=== PATIENT | female | born 1945 ===

== ENCOUNTER 2017-02-20 13:31 | Inpatient (IN) | payer MEDICARE ==
--- NOTE | 2017-02-20 13:44 | CT ---
PROCEDURE: CT HEAD WITHOUT CONTRAST. HISTORY: left sided weakness r/o cva COMPARISON: None available. TECHNIQUE: Axial computed tomography images were obtained through the head/brain without intravenous contrast. Radiation dose: Total exam DLP = 926 mGy-cm. This CT exam was performed using one or more of the following dose reduction techniques: Automated exposure control, adjustment of the mA and/or kV according to patient size, and/or use of iterative reconstruction technique. FINDINGS: HEMORRHAGE: No intracranial hemorrhage. BRAIN: No mass effect or edema. No atrophy or chronic microvascular ischemic changes. VENTRICLES: Unremarkable. No hydrocephalus. CALVARIUM: Unremarkable. PARANASAL SINUSES: Unremarkable as visualized. No significant inflammatory changes. MASTOID AIR CELLS: Unremarkable as visualized. No inflammatory changes. OTHER FINDINGS: None. IMPRESSION: No acute findings
--- NOTE | 2017-02-20 14:05 | ED PDOC ---
Arrival/HPI - General Time Seen by Provider: 02/20/17 13:31 Historian: EMS - Critical Care Critical Care Minutes: 30 minutes - History of Present Illness Narrative History of Present Illness (Text): 02/20/17 14:01 A 71 year old female, whose past medical history includes hyperlipidemia, hypertension, parkinsons (?), ESRD, gout, and diabetes, is brought in by ambulance for left sided weakness that started about 20 minutes prior to arrival as per EMS as per HD center. The patient was seen immediately upon arrival. As per EMS, the patient was in the dialysis center when she began experiencing left sided weakness. As per EMS the blood pressure on the scene was 188/70. ROS/HPI limited due to patient's acuity of condition. PMD: Dr. De Jesus GI: Dr. Farmer Time/Duration: Prior to Arrival Symptom Onset: Sudden Symptom Course: Unchanged Activities at Onset: Rest, Light Context: Other (Dialysis Center) Family/Social History - Physician Review Nursing Documentation Reviewed: Yes Family/Social History: No Known Family HX Allergies/Home Meds Allergies/Adverse Reactions: Allergies No Known Allergies Allergy (Unverified 02/20/17 13:32) Home Medications: Home Meds Medication Instructions Recorded Confirmed Unobtainable 02/20/17 02/20/17 Review of Systems - Physician Review All systems were reviewed & negative as marked: Yes - Review of Systems Systems not reviewed;Unavailable: Acuity of Condition Physical Exam Vital Signs Reviewed: Yes Vital Signs Temp Pulse Resp BP Pulse Ox 02/20/17 17:06 99.6 F 77 19 180/60 H 98 02/20/17 16:58 78 19 175/61 H 97 02/20/17 16:46 77 16 190/73 H 97 02/20/17 16:16 84 18 200/71 H 02/20/17 14:02 99.7 F H 87 23 158/121 H 93 L Temperature: Febrile Blood Pressure: Hypertensive Pulse: Regular Respiratory Rate: Normal Mental Status: Positive for: Confused. No: Alert and Oriented X 3 (Awake) - Systems Exam Head: Present: Atraumatic, Normocephalic Pupils: Present: PERRL Extroacular Muscles: Present: EOMI Conjunctiva: Present: Normal Mouth: Present: Moist Mucous Membranes Pharnyx: Present: Normal. No: ERYTHEMA Nose (Internal): Present: Normal Inspection Neck: Present: Normal Range of Motion. No: MIDLINE TENDERNESS, Paraspinal Tenderness Respiratory/Chest: Present: Clear to Auscultation, Good Air Exchange. No: Respiratory Distress, Accessory Muscle Use Cardiovascular: Present: Regular Rate and Rhythm Abdomen: Present: Normal Bowel Sounds. No: Tenderness, Distention Back: Present: Normal Inspection Upper Extremity: Present: Normal Inspection, NORMAL PULSES, Neurovascularly Intact Lower Extremity: Present: Normal Inspection, NORMAL PULSES, Neurovascularly Intact Neurological: Present: GCS=15, CN II-XII Intact, Motor Func Grossly Intact, Normal Sensory Function, Other (Patient answers limited to questions. Says only name and then asked again and doesn't say name anymore. +shivering. No convulsions) Skin: Present: Warm Psychiatric: Present: Alert, Other (Awake). No: Oriented x 3, Normal Insight, Normal Concentration Medical Decision Making ED Course and Treatment: 02/20/17 14:08 Impression: A 71 year old female presents to the emergency department after experiencing left sided weakness while in dialysis. On arrival was moving all extremities but did have shivers and altered mental status. Differential Diagnosis included but are not limited to: Altered Mental Status r /o Sepsis r/o CVA r/o Seizures Plan: -- EKG -- Chest X-ray -- Blood Culture -- Labs -- Urinalysis -- Reassess and disposition Progress Notes: 02/20/17 13:28: Code stroke was called. 02/20/17 14:31: Discussed case with nurse from dialysis center, [facility], who states that the patient was finishing dialysis when she appeared to be shaking, having chills. The nurse states that she checked her temperature an blood pressure which was 99.4 and 175/80 at the time. As per the nurse, the patient has had a similar episode before and was admitted to [facility] for Parkinson's. The nurse states that today, the patient was not following commands with her left side. Tried to contact through cell phone and home phone, but have not received an answer. A voicemail was left. 02/20/17 14:51: Case was discussed in detail with Dr. Matthew Marshall who states that the patient is not a tPA candidates secondary to infectious etiology and rapid improvement of symptoms. CHEST X-RAY Dictator : Johnny Reyna MD Report Date : 02/20/2017 14:42:59 IMPRESSION: Bilateral perihilar infiltrates right greater than left CT HEAD WITHOUT CONTRAST. Dictator : Johnny Reyna MD Report Date : 02/20/2017 13:42:39 IMPRESSION: No acute findings 02/20/17 15:19: Spoke with patients at bedside, who confirms history provided by nurse from the renal center. He believes patient was not responding to questions and did not have weakness in just her left side. He reports patient has been shivering for 2 days but is unsure if she had a fever. Patient is currently not answering husbands questions, he states this is not her baseline. Case discussed with Dr. Pruitt, who states he will evaluate patient at bedside. 02/20/17 16:52 Dr. Pruitt evaluated patient and on his evaluation patient was answering who her . On my reevaluation she started answering more questions as well. She said her name and where she was. She doesn't remember what happened. She is able to geophysical observer both hands and lift her legs. Sensation intact. She is still mildly confused. says she's better. Although there was no convulsions, will also consider seizures. PMD Dr. Guillory admits to Dr. Ariza. Will place on her service to Telemetry. 02/20/17 17:24 EKG: NSR at [address] elevations, nl intervals 02/20/17 17:26 Blood pressure treated with Labetolol. Case discussed with Dr. Junior Marshall after ICU consult. He agrees that no seizure medications at this time. - Critical Care Critical Care Minutes: 60 minutes - Lab Interpretations Lab Results: 02/20/17 13:55 02/20/17 13:55 Lab Results 02/20/17 13:55: pO2 30, VBG pH 7.44 H, VBG pCO2 57.0, VBG HCO3 38.7 H, VBG Total CO2 40.4 H, VBG O2 Sat (Calc) 56.5, VBG Base Excess 12.1 H, VBG Potassium 3.5 L, Sodium 136.0, Chloride 94.0 L, Glucose 93, Lactate 2.0, FiO2 21.0, Venous Blood Potassium 3.5 L 02/20/17 13:55: Sodium 137, Chloride 89 L, Potassium 3.5 L, Carbon Dioxide 30, Anion Gap 21 H, BUN 40 H, Creatinine 6.6 H, Est GFR ( Amer) 8, Est GFR ( Non-Af Amer) 6, Random Glucose 95, Calcium 10.3, Total Bilirubin 1.0, AST 40 H, ALT 40, Alkaline Phosphatase 136 H, Troponin I 0.05, Total Protein 9.1 H, Albumin 4.9 H, Globulin 4.2, Albumin/Globulin Ratio 1.2, Triglycerides 102, Cholesterol 155, LDL Cholesterol Direct 42, HDL Cholesterol 78 H 02/20/17 13:55: PT 11.2, INR 1.02, APTT 34.0 02/20/17 13:55: WBC 17.3 H, RBC 3.86, Hgb 12.1, Hct 36.9, MCV 95.6, MCH 31.3, MCHC 32.8, RDW 14.4, Plt Count 201, MPV 9.6, Gran % 85.9 H, Lymph % (Auto) 7.2 L , [place] % (Auto) 6.2 H, Eos % (Auto) 0.6 L, Baso % (Auto) 0.1, Gran # 14.86 H, Lymph # 1.3, [place] # 1.1 H, Eos # 0.1, Baso # 0.01 I have reviewed the lab results: Yes - RAD Interpretation Radiology Orders: 02/20/17 13:32 HEAD W/O (CODE STROKE) [CT] Stat 02/20/17 13:33 CHEST PORTABLE [RAD] Stat - EKG Interpretation Interpreted by ED Physician: Yes Type: 12 lead EKG - Medication Orders Current Medication Orders: Discontinued Medications Aspirin (Aspirin Supp) 300 mg RC STAT STA Stop: 02/20/17 15:08 Last Admin: 02/20/17 15:20 Dose: 300 mg Cefepime HCl (Maxipime 2gm) 2 gm in 100 mls @ 100 mls/hr IVPB STAT STA PRN Reason: Protocol Stop: 02/20/17 16:01 Last Admin: 02/20/17 15:56 Dose: 100 mls/hr eMAR Start Stop Document 02/20/17 15:56 RG (Rec: 02/20/17 15:57 RG [id number]) Intravenous Solution Start Date 02/20/17 Start Time 15:57 End Date 02/20/17 Vancomycin HCl (Vancomycin 1gm) 1 gm in 250 mls @ 167 mls/hr IVPB STAT STA PRN Reason: Protocol Stop: 02/20/17 16:31 Last Admin: 02/20/17 16:24 Dose: 167 mls/hr eMAR Start Stop Document 02/20/17 16:24 TANVI (Rec: 02/20/17 16:24 TANVI [id number]) Intravenous Solution Start Date 02/20/17 Start Time 16:24 NIHSS Scale (Brilliant) Time Performed: 13:31 - How Severe is the Stoke Baseline Level of Consciousness: 0=Alert LOC to Questions: 2=Neither correct LOC to commands: 0=Obeys both correctly Best Gaze: 0=Normal Visual: 3=Bilateral Facial: 0=Normal Motor Arm - Left: 2=Falls before 10 sec Motor Arm - Right: 2=Falls before 10 sec Motor Leg - Left: 2=Falls before 5 sec Motor Leg - Right: 2=Falls before 5 sec Limb Ataxia: 2=Present both Sensory: 0=Normal Best Language: 2=Severe aphasia Dysarthia: 2=Severe, near unintelligible or worse Extinction & Inattention (Neglect): 2=Profound neglect(does not recognize own hand or orients to one side) Score: 21 Risk Level: Severe Stroke Risk NIHSS Scale(Brilliant) 2 Time Performed: 17:27 - How Severe is the Stoke Baseline Level of Consciousness: 0=Alert LOC to Questions: 0=Both comments correct LOC to commands: 0=Obeys both correctly Best Gaze: 0=Normal Visual: 0=No visual loss Facial: 0=Normal Motor Arm - Left: 2=Falls before 10 sec Motor Arm - Right: 2=Falls before 10 sec Motor Leg - Left: 2=Falls before 5 sec Motor Leg - Right: 2=Falls before 5 sec Limb Ataxia: 2=Present both Sensory: 0=Normal Best Language: 0=No aphasia Dysarthia: 0=Normal articulation Extinction & Inattention (Neglect): 0=Normal, no object Score: 10 Risk Level: Mod Stroke Risk rTPA Inclusion/Exclusion - Refusal of Treatment Patient Refused Treatment: No - Inclusion Criteria for Altepase Patient is 18 years or Older: Yes The Clinical Diagnosis of Ischemic Stroke That is Causing a Potentially Disabling Neurological Deficit: No Time of Onset is Well Established to be Less Than 270 Minute Before Treatment Would Begin: Yes Risk/Benefit Discussed With Patient/Family Member Present: No - Scribe Statement The provider has reviewed the documentation as recorded by the Scribe Jannette Swan Provider Priyaibe Attestation: All medical record entries made by the Scribe were at my direction and personally dictated by me. I have reviewed the chart and agree that the record accurately reflects my personal performance of the history, physical exam, medical decision making, and the department course for this patient. I have also personally directed, reviewed, and agree with the discharge instructions and disposition. Disposition/Present on Arrival - Present on Arrival Any Indicators Present on Arrival: No - Disposition Have Diagnosis and Disposition been Completed?: Yes Diagnosis: Seizure, Altered mental status, Sepsis Disposition: HOSPITALIZED Disposition Time: 16:31 Patient Plan: Admission Patient Problems: Current Active Problems Problem Status Onset Altered mental status Acute Seizure Acute Sepsis Acute Condition: GUARDED
[2017-02-20 14:09] LABS: BASO # 0.01 K/mm3 (0.0-2.0); BASO % 0.1 % (0.0-3.0); EOS # 0.1 (0.0-0.7); EOS % 0.6 % (1.5-5.0); GRAN # 14.86 (1.4-6.5); GRAN % 85.9 % (50.0-68.0); HEMOGLOBIN 12.1 g/dL (12.0-16.0); LYMPH # 1.3 (1.2-3.4); LYMPH % 7.2 % (22.0-35.0); MEAN CELL VOLUME 95.6 fl (80.0-105.0); MEAN CORPUSCULAR HEMOGLOBIN 31.3 pg (25.0-35.0); MEAN CORPUSCULAR HGB CONC 32.8 g/dl (31.0-37.0); MEAN PLATELET VOLUME 9.6 fl (7.0-11.0); MONO # 1.1 (0.1-0.6); MONO % 6.2 % (1.0-6.0); RBC 3.86 10^6/uL (3.5-6.1); RED CELL DISTRIBUTION WIDTH 14.4 % (11.5-14.5); WHITE BLOOD COUNT 17.3 10^3/ul (4.5-11.0)
[2017-02-20 14:15] LABS: VENOUS BLOOD GAS BASE EXCESS 12.1 mmol/L (0.0-2.0); VENOUS BLOOD GAS PO2 30 mm/Hg (30-55); VENOUS BLOOD PH 7.44 (7.32-7.43)
[2017-02-20 14:19] LABS: ALBUMIN 4.9 g/dL (3.0-4.8); CALCIUM 10.3 mg/dL (8.4-10.5)
[2017-02-20 14:23] LABS: ALB/GLOB RATIO 1.2 (1.1-1.8); INR 1.02 (0.93-1.08); PROTHROMBIN TIME 11.2 SECONDS (9.4-12.5)
[2017-02-20 14:32] LABS: TROPONIN I 0.05 ng/mL
--- NOTE | 2017-02-20 14:44 | RAD ---
HISTORY: r/o cva COMPARISON: No prior. FINDINGS: LUNGS: Bilateral perihilar infiltrates right greater than left PLEURA: No significant pleural effusion identified, no pneumothorax apparent. CARDIOVASCULAR: Normal. OSSEOUS STRUCTURES: No significant abnormalities. VISUALIZED UPPER ABDOMEN: Normal. OTHER FINDINGS: None. IMPRESSION: Bilateral perihilar infiltrates right greater than left
[2017-02-20] MEDS ORDERED: Vancomycin 1gm in NS 250ml 1 GM/250 ML BAG IVPB STA (15:02)
[2017-02-20] MEDS ORDERED: Cefepime IV 2 gm in NS 2 GM/100 ML BAG IVPB STA (15:02)
--- NOTE | 2017-02-20 15:50 | CP.PCM.CON ---
<Elan Hernnadez - Last Filed: 02/20/17 16:17> History of Present Illness - History of Present Illness History of Present Illness: Critical Care Consult Note for Dr. Pruitt Reason for Consult: AMS 71 F with a past medical history that includes HTN, HLD, Parkinson's disease, ESRD on HD, and DM was brought in by EMS for AMS and weakness. was at bedside and supplemented history. As per , the patient was receiving dialysis earlier when she began to shake and become lethargic. She was also experiencing left sided weakness. As per EMS record, blood pressure was elevated at the dialysis center (188/70). states that patient was at normal baseline before dialysis. PMD: Dr. De Jesus PMH: HTN, HLD, Parkinson's disease, ESRD on HD (MWF), gout, DM Meds: As per EMR Allergy: NKDA PSH: PRABHU AVF FH: unknown Social: denied tobacco/EtOH/illicit drug use Review of Systems - Review of Systems All systems: reviewed and no additional remarkable complaints except (as per HPI ) Past Patient History - Past Social History Smoking Status: Unknown If Ever Smoked - CARDIAC Hx Hypertension: Yes - RENAL Hx Chronic Kidney Disease: Yes Hx Dialysis: Yes Type of Dialysis Access: Left arm - PSYCHIATRIC Hx Substance Use: No Meds Allergies/Adverse Reactions: Allergies Allergy/AdvReac Type Severity Reaction Status Date / Time No Known Allergies Allergy Unverified 02/20/17 13:32 - Medications Medications: Current Medications Cefepime HCl (Maxipime 2gm) 2 gm in 100 mls @ 100 mls/hr IVPB STAT STA PRN Reason: Protocol Stop: 02/20/17 16:01 Vancomycin HCl (Vancomycin 1gm) 1 gm in 250 mls @ 167 mls/hr IVPB STAT STA PRN Reason: Protocol Stop: 02/20/17 16:31 Physical Exam - Constitutional Appears: Confused - Head Exam Head Exam: ATRAUMATIC, NORMOCEPHALIC - Eye Exam Eye Exam: Normal appearance - ENT Exam ENT Exam: Mucous Membranes Moist - Respiratory Exam Respiratory Exam: Clear to Auscultation Bilateral, NORMAL BREATHING PATTERN. absent: Accessory Muscle Use, Respiratory Distress - Cardiovascular Exam Cardiovascular Exam: REGULAR RHYTHM, +S1, +S2 - GI/Abdominal Exam GI & Abdominal Exam: Normal Bowel Sounds, Soft. absent: Distended, Firm, Guarding, Hernia, Rebound, Rigid, Tenderness - Extremities Exam Extremities exam: Negative for: calf tenderness Additional comments: LUE AVF palpable thrill and audible bruit - Neurological Exam Neurological exam: Alert - Psychiatric Exam Psychiatric exam: Flat Affect - Skin Skin Exam: Dry, Intact, Normal Color, Warm Results - Vital Signs Recent Vital Signs: Last Vital Signs Temp 99.7 F H 02/20/17 14:02 Pulse 87 02/20/17 14:02 Resp 23 02/20/17 14:02 BP 158/121 H 02/20/17 14:02 Pulse Ox 93 L 02/20/17 14:02 - Labs Result Diagrams: 02/20/17 13:55 02/20/17 13:55 Labs: Laboratory Results - last 24 hr 02/20/17 02/20/17 02/20/17 13:55 13:55 13:55 WBC 17.3 H RBC 3.86 Hgb 12.1 Hct 36.9 MCV 95.6 MCH 31.3 MCHC 32.8 RDW 14.4 Plt Count 201 MPV 9.6 Gran % 85.9 H Lymph % (Auto) 7.2 L [place] % (Auto) 6.2 H Eos % (Auto) 0.6 L Baso % (Auto) 0.1 Gran # 14.86 H Lymph # 1.3 [place] # 1.1 H Eos # 0.1 Baso # 0.01 PT 11.2 INR 1.02 APTT 34.0 pO2 VBG pH VBG pCO2 VBG HCO3 VBG Total CO2 VBG O2 Sat (Calc) VBG Base Excess VBG Potassium Sodium 137 Chloride 89 L Glucose Lactate FiO2 Potassium 3.5 L Carbon Dioxide 30 Anion Gap 21 H BUN 40 H Creatinine 6.6 H Est GFR ( Amer) 8 Est GFR (Non-Af Amer) 6 Random Glucose 95 Calcium 10.3 Total Bilirubin 1.0 AST 40 H ALT 40 Alkaline Phosphatase 136 H Troponin I 0.05 Total Protein 9.1 H Albumin 4.9 H Globulin 4.2 Albumin/Globulin Ratio 1.2 Triglycerides 102 Cholesterol 155 LDL Cholesterol Direct 42 HDL Cholesterol 78 H Venous Blood Potassium 02/20/17 13:55 WBC RBC Hgb Hct MCV MCH MCHC RDW Plt Count MPV Gran % Lymph % (Auto) [place] % (Auto) Eos % (Auto) Baso % (Auto) Gran # Lymph # [place] # Eos # Baso # PT INR APTT pO2 30 VBG pH 7.44 H VBG pCO2 57.0 VBG HCO3 38.7 H VBG Total CO2 40.4 H VBG O2 Sat (Calc) 56.5 VBG Base Excess 12.1 H VBG Potassium 3.5 L Sodium 136.0 Chloride 94.0 L Glucose 93 Lactate 2.0 FiO2 21.0 Potassium Carbon Dioxide Anion Gap BUN Creatinine Est GFR ( Amer) Est GFR (Non-Af Amer) Random Glucose Calcium Total Bilirubin AST ALT Alkaline Phosphatase Troponin I Total Protein Albumin Globulin Albumin/Globulin Ratio Triglycerides Cholesterol LDL Cholesterol Direct HDL Cholesterol Venous Blood Potassium 3.5 L Assessment & Plan - Assessment and Plan (Free Text) Assessment: 71 F with a past medical history that includes HTN, HLD, Parkinson's disease, ESRD on HD, and DM was brought in by EMS for AMS and weakness -WBC elevated -Patient awake, alert, and answering questions appropriately -ABG -Neuro consult -EEG -Broad spectrum Antibiotics -CT head is negative -Discussed with Dr. Sonal Hernandez PGY1 <Glynn Pruitt - Last Filed: 02/20/17 16:26> Meds - Medications Medications: Current Medications Vancomycin HCl (Vancomycin 1gm) 1 gm in 250 mls @ 167 mls/hr IVPB STAT STA PRN Reason: Protocol Stop: 02/20/17 16:31 Results - Vital Signs Recent Vital Signs: Last Vital Signs Temp 99.7 F H 02/20/17 14:02 Pulse 87 02/20/17 14:02 Resp 23 02/20/17 14:02 BP 158/121 H 02/20/17 14:02 Pulse Ox 93 L 02/20/17 14:02 - Labs Result Diagrams: 02/20/17 13:55 02/20/17 13:55 Labs: Laboratory Results - last 24 hr 02/20/17 02/20/17 02/20/17 13:55 13:55 13:55 WBC 17.3 H RBC 3.86 Hgb 12.1 Hct 36.9 MCV 95.6 MCH 31.3 MCHC 32.8 RDW 14.4 Plt Count 201 MPV 9.6 Gran % 85.9 H Lymph % (Auto) 7.2 L [place] % (Auto) 6.2 H Eos % (Auto) 0.6 L Baso % (Auto) 0.1 Gran # 14.86 H Lymph # 1.3 [place] # 1.1 H Eos # 0.1 Baso # 0.01 PT 11.2 INR 1.02 APTT 34.0 pO2 VBG pH VBG pCO2 VBG HCO3 VBG Total CO2 VBG O2 Sat (Calc) VBG Base Excess VBG Potassium Sodium 137 Chloride 89 L Glucose Lactate FiO2 Potassium 3.5 L Carbon Dioxide 30 Anion Gap 21 H BUN 40 H Creatinine 6.6 H Est GFR ( Amer) 8 Est GFR (Non-Af Amer) 6 Random Glucose 95 Calcium 10.3 Total Bilirubin 1.0 AST 40 H ALT 40 Alkaline Phosphatase 136 H Troponin I 0.05 Total Protein 9.1 H Albumin 4.9 H Globulin 4.2 Albumin/Globulin Ratio 1.2 Triglycerides 102 Cholesterol 155 LDL Cholesterol Direct 42 HDL Cholesterol 78 H Venous Blood Potassium 02/20/17 13:55 WBC RBC Hgb Hct MCV MCH MCHC RDW Plt Count MPV Gran % Lymph % (Auto) [place] % (Auto) Eos % (Auto) Baso % (Auto) Gran # Lymph # [place] # Eos # Baso # PT INR APTT pO2 30 VBG pH 7.44 H VBG pCO2 57.0 VBG HCO3 38.7 H VBG Total CO2 40.4 H VBG O2 Sat (Calc) 56.5 VBG Base Excess 12.1 H VBG Potassium 3.5 L Sodium 136.0 Chloride 94.0 L Glucose 93 Lactate 2.0 FiO2 21.0 Potassium Carbon Dioxide Anion Gap BUN Creatinine Est GFR ( Amer) Est GFR (Non-Af Amer) Random Glucose Calcium Total Bilirubin AST ALT Alkaline Phosphatase Troponin I Total Protein Albumin Globulin Albumin/Globulin Ratio Triglycerides Cholesterol LDL Cholesterol Direct HDL Cholesterol Venous Blood Potassium 3.5 L Assessment & Plan - Assessment and Plan (Free Text) Assessment: Patient seen and examined with resident, agree with note with following additions/exceptions: Patient is 71yo female with PMHx of HTN, HLD, ESRD on HD presents with low grade temp and AMS. Pt is currnetly awake, alert, answers questions appropriately, oriented to person. CT head negative, moving all 4 extremities. On labs has leukocytosis Recommend: - supp o2 as needed - obtain an ABG - EEG - MRI brain - neurology consult - broad spectrum antibiotics - monitor on telemetry
[2017-02-20] MEDS ORDERED: Labetalol 5 mg/ml Inj 20ML IV STA (17:25)
[2017-02-20 17:41] LABS: VENOUS BLOOD GAS BASE EXCESS 8.5 mmol/L (0.0-2.0); VENOUS BLOOD GAS PO2 174 mm/Hg (30-55); VENOUS BLOOD PH 7.49 (7.32-7.43)
--- NOTE | 2017-02-20 19:11 | CON ---
DATE: 02/20/2017 NEUROLOGY CONSULTATION CHIEF COMPLAINT: Altered mental status and lethargy. HISTORY OF PRESENT ILLNESS: This is a 71-year-old woman with past medical history of hypertension, hyperlipidemia, questionable Parkinson's disease, end-stage renal disease on hemodialysis, type 2 diabetes mellitus, came in for altered mental status and generalized weakness. As per , the patient was receiving dialysis earlier, which shiver become generally lethargic. She has a questionable left side weakness. Her blood pressure was elevated and dialysis at 180/70. Currently, during her ER visit she was found to have an elevated systolic and diastolic blood pressure of 158/121 and low-grade temperature of 99.7 with elevated white count of 17.3 and electrolyte derangement in terms of low potassium, low chloride, and elevated BUN. Currently, she is more awake, following simple commands. CAT scan of the head showed no acute cranial abnormalities. They should reevaluate by the ER physician Dr. Chaney, who mentioned that she is more awake. Currently, she follow simple commands, moving all extremities. PAST MEDICAL HISTORY: History of hypertension, hyperlipidemia, end-stage renal disease on hemodialysis, questionable Parkinson's disease, and history of gout. ALLERGIES: NO KNOWN DRUG ALLERGIES. PAST SURGICAL HISTORY: Left upper extremity AV shunt. FAMILY HISTORY: Noncontributory. SOCIAL HISTORY: No illicit drug use or EtOH abuse. REVIEW OF SYSTEMS: A 14-point review of systems is negative except as in the HPI. PHYSICAL EXAMINATION: VITAL SIGNS: Temperature 99.6, pulse rate 77, blood pressure of 180/60, respiratory rate 16, oxygen saturation is 98% in room air. GENERAL: The patient is sitting up in bed, lethargic. HEENT: Head is atraumatic and normocephalic. PERRLA. Extraocular muscles are intact. NECK: Supple. No JVD. No adenopathy noted. LUNGS: Clear to auscultation. No adventitious sounds. HEART: S1 and S2. Normal rate and rhythm. No murmurs, rubs or gallops. ABDOMEN: Soft, nontender and nondistended. Bowel sounds are present. EXTREMITIES: No clubbing. No cyanosis. Peripheral pulses are 2+ felt bilaterally. NEUROLOGIC: The patient is drowsy, in no acute distress. Moves all extremities equally, no apparent distress. Sensory exam: Decreased light touch, pinprick, proprioception up to the calves bilaterally, decreased vibration of the toes. DTRs are 1+ throughout as both knees and ankles. Coordination and gait deferred for now. LABORATORY DATA: Sodium is 137, potassium of 3.5, chloride of 89, carbon dioxide of 30, BUN of 45, creatinine 6.6, random glucose of 95. ASSESSMENT AND PLAN: This is a 71-year-old woman with past medical history of hypertension, hyperlipidemia, end-stage renal disease on hemodialysis, came in low-grade temperature and altered mental status at the dialysis. Found to have elevated systolic and diastolic blood pressures for her baseline with metabolic derangement and is currently awake, alert, and answer appropriate questions. CAT scan of the head show no acute cranial abnormality. Moving all extremities. Likely transient hypertensive urgency versus metabolic encephalopathy versus sepsis with underlying possible infarct. At this time recommend: 1. Supplement oxygen as necessary. 2. An arterial blood gas. 3. MRI of the brain assess any focal neurological abnormality causing her symptoms. 4. Monitor electrolytes and correct accordingly. 5. Delirium precautions. 6. Broad spectrum antibiotics given the elevated white count, need blood cultures, and a chest x-ray. Monitor on Holter monitor. At this time, continue current present medical management. PT and OT evaluation. Thank you for this consult. Junior Marshall MD
--- NOTE | 2017-02-20 19:32 | CARD ---
APPROVED REPORT EKG Measurement Heart [id number] <Conclusion> Sinus rhythm with significant artifacs , no further interpretation can be made Repeat EKG Abnormal ECG
[2017-02-20] MEDS ORDERED: Cefepime 1gm in NS 100ml 1 GM/100 ML BAG IVPB SCH (22:00)
[2017-02-20] MEDS: Insulin Lispro (HUMAlog) HIGH Coverage SC SCH (22:10)
[2017-02-20 22:20] VITALS: BMI 26.6
[2017-02-20] MEDS ORDERED: Pneumococcal 23-Valent Vaccine IM ONE (22:20)
[2017-02-20] MEDS ORDERED: Influenza Vaccine 60 mcg/0.5 mL SYR (4YR UP) IM ONE (22:20)
--- NOTE | 2017-02-21 00:55 | HP ---
HISTORY OF PRESENT ILLNESS: The patient is a 71-year-old dialysis patient. She had dialysis done earlier this morning. By the end of dialysis, she started to have shaking chills and she became lethargic and increasingly weak. She was confused and disoriented as per who was by the bedside that she was shivering prior to the episode and she developed left-sided weakness. Also it was noted that her blood pressure went up to 180/70. There is no history of nausea or vomiting prior to dialysis. PAST MEDICAL HISTORY: Significant for: 1. Hypertension. 2. Hyperlipidemia. 3. End-stage renal disease, on hemodialysis. 4. History of Parkinson's disease. 5. History of gout. PAST SURGICAL HISTORY: Significant for left upper extremity AV shunt. ALLERGIES: SHE IS NOT ALLERGIC TO ANY MEDICATIONS. MEDICATIONS AT HOME: She is on Lantus 100 units subcutaneously daily, Humalog 100 units daily, hydralazine 50 mg daily, gabapentin 100 daily, Lasix 80 mg daily, Fosrenol 500 daily, aspirin 81 daily, amlodipine 10 mg daily, and allopurinol 100 mg daily. SOCIAL HISTORY: She is and lives with her . She never smoked. No drinking. PHYSICAL EXAMINATION: GENERAL: She is much more awake and alert. VITAL SIGNS: She is afebrile, pulse 73, respirations 18, and blood pressure 169/56. LUNGS: Bilateral fair airflow. No rhonchi or crackle. HEART: S1 and S2 audible. ABDOMEN: Soft and nontender. No rebound. No guarding. NEUROLOGIC: The patient is awake and alert. Moves all extremities. Able to answer simple questions. LABORATORY DATA: WBC 17.3, hemoglobin of 12.1, hematocrit 36.9, and platelets of 201. PT 11.2 and INR 1.02. ABG; pH of 7.49, pO2 of 174, pCO2 of 43, and pulse ox of 97%. Chemistry; sodium 137, potassium 3.5, chloride 89, CO2 of 30, BUN 40, creatinine 6.6, and blood sugar of 95. LFTs are within normal limits. HDL is 78. ASSESSMENT: 1. Probably sepsis. 2. Altered mental status. 3. End-stage renal disease, on hemodialysis. 4. Hypertension. 5. Hyperlipidemia. 6. Uncontrolled hypertension. 7. Leukocytosis. 8. Hypokalemia. PLAN: The patient is being admitted on telemetry. We will resume her usual medications. She was given aspirin 300 in the ER, cefepime was given 2 g. We will continue her on cefepime 0.5 g q.12 hours renally adjusted. We will continue her on amlodipine. I will order for carotid Doppler and MRI of the brain has been requested by neurologist and Neuro consult by Dr. Marshall and ID consult by Dr. Mccormack has been requested. I will request for physical therapy evaluation and follow up CBC in a.m. Jagjit Ariza MD
[2017-02-21] MEDS: Cefepime 0.5 GM in Sodium Chloride 0.9% 100 ML IVPB SCH ×2 (05:11→17:42)
[2017-02-21 07:24] LABS: BASO # 0.01 K/mm3 (0.0-2.0); BASO % 0.1 % (0.0-3.0); EOS # 0.2 (0.0-0.7); EOS % 2.3 % (1.5-5.0); GRAN # 5.47 (1.4-6.5); GRAN % 73.1 % (50.0-68.0); LYMPH # 1.2 (1.2-3.4); LYMPH % 15.6 % (22.0-35.0); MEAN CELL VOLUME 95.7 fl (80.0-105.0); MEAN CORPUSCULAR HEMOGLOBIN 30.7 pg (25.0-35.0); MEAN CORPUSCULAR HGB CONC 32.1 g/dl (31.0-37.0); MEAN PLATELET VOLUME 9.8 fl (7.0-11.0); MONO # 0.7 (0.1-0.6); MONO % 8.9 % (1.0-6.0); RBC 3.22 10^6/uL (3.5-6.1); RED CELL DISTRIBUTION WIDTH 14.2 % (11.5-14.5); WHITE BLOOD COUNT 7.5 10^3/ul (4.5-11.0)
[2017-02-21 07:25] LABS: HEMOGLOBIN 9.9 g/dL (12.0-16.0)
[2017-02-21] MEDS: Insulin Lispro (HUMAlog) HIGH Coverage SC SCH ×4 (08:06→21:46)
--- NOTE | 2017-02-21 11:42 | CON ---
DATE: 02/21/2017 The patient is admitted for Dr. Ariza. Her family physician is Dr. Guillory. Referring MD: Dr. Ariza. REASON FOR CONSULTATION: To provide dialysis services for the patient admitted with altered mental status, elevated white blood cell count, possible pneumonia, lethargy, and elevated blood pressure readings. HISTORY OF PRESENT ILLNESS: The patient is a 71-year-old [place] female, known to us from outpatient dialysis, the patient dialyzes Saturday, Saturday, Saturday at [facility]; history of IDDM; hemoglobin A1c was excellent at 5.5%; history of hypertension; history of hyperlipidemia; history of Parkinson's disease; gout; history of secondary hyperparathyroidism; and anemia. The patient was doing well until the determination of dialysis yesterday in the outpatient unit. At that point in time, she had developed a period of confusion with altered mental status. There was some question about her having some left-sided weakness. She had chills, nut no fever spike. She did have an elevated blood pressure up to 188 systolic. The patient was sent over to the emergency room. In the emergency room, she was noted to be afebrile, but she did have an elevated white blood cell count and altered mental status. Head CT scan was probably done, which was negative. Chest x-ray was done, which showed bilateral perihilar infiltrates. The patient was felt to have a possible pneumonia as the etiology for her fever spike, lethargy, altered mental status, and chills. The patient is currently seen today, having a carotid Doppler study done. Her last dialysis was on 02/20/2017. Her next dialysis is going to be 02/22/2017. This will likely be done in the hospital as the patient will remain an inpatient. PAST MEDICAL HISTORY: Significant for end-stage renal disease, history of IDDM, hypertension, hyperlipidemia, Parkinson's disease, history of gout, secondary hyperparathyroidism, and anemia. The patient has a working left upper extremity AV fistula. MEDICATIONS AT HOME: Include that of Lasix every other day, Lantus insulin, Humalog, hydralazine, Neurontin, Fosrenol, Ecotrin, Norvasc, and allopurinol. ALLERGIES: THE PATIENT IS ALLERGIC TO IODINE AND ADHESIVE TAPE. MEDICATIONS IN HOSPITAL: Include that of hydralazine, cefepime, Ecotrin, insulin, Neurontin, Norvasc, and Zyloprim. SOCIAL HISTORY: No history of cigarette smoking. No history of alcohol use. FAMILY HISTORY: Father of complications of diabetes with heart disease. Mother is alive with diabetes. REVIEW OF SYSTEMS: GENERAL: The patient states appetite and weight have been stable. ENT: Denies any hearing or visual problems. PULMONARY: No shortness of breath. No cough. No recent pneumonias. No history of COPD, bronchitis, or asthma. CARDIAC: No history of ASHD. No chest pain. GI: No nausea, no vomiting, no diarrhea, no constipation, no abdominal pain. : History of end-stage renal disease on chronic maintenance dialysis. TIRE LAYER: Postmenopausal. ENDOCRINE: History of diabetes mellitus and secondary hyperparathyroidism. MUSCULOSKELETAL: No complaints. NEURO: No past history of CVA, TIA, seizures, or syncope. HEM/ONC: History of anemia secondary to chronic kidney disease. No history of malignancy. PAST PSYCHIATRIC HISTORY: Negative. PHYSICAL EXAMINATION: GENERAL: The patient is currently seen, lying on a stretcher, and about to have a carotid Doppler study. She appears to be in no acute distress and appears to be back to baseline. VITAL SIGNS: Blood pressure 149/57, temperature 98.2, respiratory rate of 20 with a pulse of 56. Her T-max was 99.7 in the emergency room yesterday. HEENT: Shows her be normocephalic, atraumatic. Conjunctivae are pale. Sclerae nonicteric. Pupils equal reactive to light and accommodation. Extraocular muscles are intact. Posterior pharynx is normal. NECK: Supple. No neck vein distention or thyromegaly. No lymphadenopathy. No bruits. CHEST: Clear to auscultation and percussion with no rales, no rhonchi, or wheezing. CARDIOVASCULAR: Shows a regular rate and rhythm without audible murmurs, rubs, or gallops. ABDOMEN: Soft. Bowel sounds normal. No rebound or guarding. No masses. BACK: No CVAT. No spinal tenderness. EXTREMITIES: Show a working AV fistula in left upper extremity. No redness. No warmth. No tenderness. Positive thrill. Positive bruit. No lower extremity cyanosis, clubbing, or edema. Distal lower extremity pulses are 1-2+ bilaterally NEURO: Shows her to be alert, oriented x3. No gross focal motor or sensory deficits are noted. LABORATORY DATA AND IMAGING: Admitting head CT scan was negative for any new findings. Admitting chest x-ray on 02/20/2017 in the emergency room showed bilateral perihilar infiltrates, right greater than left. Perhaps secondary to pneumonia. Labs: CBC, white blood cell count on admission 17.3, today it is down to 7.5; hemoglobin down from 12.1-9.9, platelet count 155,000. Coags are normal. Admitting blood gas: PH 7.49, pO2 174 with a pCO2 of 43. Chemistries: Sodium 137, potassium 3.5, repeated at 3.7. Chloride 89 with a CO2 of 30. BUN 40, creatinine 6.6, status post dialysis. Calcium 10.3. Hemoglobin A1c was 5.5%. Microbiology, no results available as of the time of this dictation. ASSESSMENT: 1. End-stage renal disease. The patient will continue routine dialysis Saturday, Saturday, Saturday. All likelihood, she will receive dialysis tomorrow in the hospital. The patient would like to be discharged back to the outpatient unit, but this is likely not going to occur. The patient appears to be well dialyzed. Episode of altered mental status, confusion, perhaps left-sided weakness, blood pressure spike, with chills and elevated white blood cell count. Chest x-ray is positive for bilateral perihilar infiltrates. Possibly representing pneumonia. The patient continues on empiric antibiotic therapy. Blood cultures are pending. Repeat chest x-ray should be done post dialysis tomorrow. 2. Altered mental status and weakness, perhaps secondary to metabolic factors and sepsis related to her pneumonia. It does not appear that she has any acute neurological event. Noninvasive carotid study is pending. Head CT scan was unremarkable, and the patient was seen by Neurology. 3. History of hypertension. The patient has labile blood pressure. Blood pressures occasionally high, occasionally low. Blood pressure does drop during dialysis. The patient will continue present blood pressure medication. 4. History of hyperlipidemia, controlled with diet therapy. 5. History of mild Parkinson's disease. The patient appears to be stable on this issue, appears to be stable at this time. 6. History of gout. The patient remains on low-dose allopurinol therapy. 7. History of secondary hyperparathyroidism. The patient may use a binder therapy from home. She is taking Fosrenol. We will check a phosphorus level tomorrow. 8. History of anemia. This is likely secondary to chronic kidney disease with perhaps bone marrow suppression from possible pneumonia. PLAN: 1. Discussed with the patient in detail. Explained to her that she will need to remain in the hospital for least several more days receiving antibiotic therapy. 2. We will obtain a chest x-ray post dialysis tomorrow to check for resolution, perhaps the perihilar infiltrates represent fluid and not pneumonia. 3. Continue binder therapy and renal diet. 4. Continue present blood pressure medications. 5. For her diabetes, continue insulin on sliding scale. At present, Lantus, a long-acting insulin is on hold. Thank you for letting me partake and share in the care of our mutual patient. Carlitos Chen MD
--- NOTE | 2017-02-21 11:57 | US ---
PROCEDURE: Bilateral carotid artery duplex ultrasound HISTORY: Carotid stenosis PHYSICIAN(S): William Echevarria MD. TECHNIQUE: Duplex sonography and color-flow Doppler were used to evaluate the carotid bifurcations and limited segments of the vertebral arteries bilaterally. FINDINGS: There is mild focal heterogeneous echogenic plaque noted at the carotid bifurcations bilaterally. The peak systolic velocity in the proximal right internal carotid artery is 106 cm/sec. This corresponds to a 20 to 39% proximal right ICA stenosis. Normal systolic velocities are noted in the proximal right external carotid artery. There is antegrade flow in the right vertebral artery. The peak systolic velocity in the proximal left internal carotid artery is 80 cm/sec. This corresponds to a 20 to 39% proximal left ICA stenosis. Normal systolic velocities are noted in the proximal left external carotid artery. There is antegrade flow in the left vertebral artery. IMPRESSION: 1. Bilateral 20-39% proximal ICA stenoses. 2. Antegrade flow in both vertebral arteries.
--- NOTE | 2017-02-21 17:05 | MRI ---
PROCEDURE: MRI BRAIN WITHOUT CONTRAST HISTORY: ams COMPARISON: None. TECHNIQUE: Multiplanar, multisequence MR images of the brain were obtained without intravenous contrast enhancement. Thin section coronal imaging was performed through the temporal lobes. FINDINGS: HEMORRHAGE: None DWI: No evidence of an acute or early subacute infarction. BRAIN PARENCHYMA: No mass effect or edema. No atrophy or chronic microvascular ischemic changes. The temporal lobes are unremarkable VENTRICLES: Unremarkable. No hydrocephalus. CRANIUM: Unremarkable. ORBITS: Grossly unremarkable. PARANASAL SINUSES/MASTOIDS: Clear VASCULAR SYSTEM: Skull base flow voids intact. OTHER FINDINGS: None. IMPRESSION: Unremarkable non contrast enhanced MRI of the brain.
[2017-02-21] MEDS: EYE OD SCH ×4 (17:30→21:39)
[2017-02-21] MEDS: CIPROFLOXACIN 0.3% OD SCH ×2 (17:30→21:39)
[2017-02-21] MEDS: PREDNISOLONE AC 1% OS SCH ×3 (17:31→21:51)
[2017-02-21] MEDS: EYE OS SCH ×3 (17:31→21:51)
[2017-02-21] MEDS: DEXAMETHASONE 0.1% OD SCH ×2 (17:33→21:39)
--- NOTE | 2017-02-21 18:49 | PN ---
DATE: 02/21/2017 CHIEF COMPLAINT: Followup for change in mental status. SUBJECTIVE: The patient is seen and examined on the bedside. She is doing much well. Following all commands. Talking without any problems. No focal weakness, paraesthesia of the extremities. MRI of the brain was done, preliminary report to me shows no acute infarct by radiological read. Blood pressures are much stable today. Nephrology note reviewed and appreciated. Her blood pressure shows labile high blood pressure. Blood sugars are much better today. She is on aspirin for stroke prevention and gabapentin for neuropathic pain. PAST MEDICAL HISTORY: Hypertension, hyperlipidemia, end-stage renal disease on hemodialysis, history of gout. ALLERGIES: NO KNOWN DRUG ALLERGIES. FAMILY HISTORY: Noncontributory. SOCIAL HISTORY: No illicit drug use, smoking, or EtOH abuse. REVIEW OF SYSTEMS: A 14-point review of systems reviewed and as per the HPI. PHYSICAL EXAMINATION: GENERAL: The patient is sitting up in bed, in no acute distress. VITAL SIGNS: Temperature 98, pulse 72, blood pressure 160/60, respiratory rate 18. HEENT: Head is atraumatic and normocephalic. PERRLA. Extraocular muscle intact. NECK: Supple. No JVD. No adenopathy noted. LUNGS: Clear to auscultation. No adventitious sounds. HEART: S1 and S2. Normal rate and rhythm. No murmurs, rubs or gallops. ABDOMEN: Soft, nontender. Normoactive bowel sounds present. EXTREMITIES: No clubbing. No cyanosis. Peripheral pulses 2+ bilaterally. NEUROLOGIC: The patient is alert and oriented x3. Speech is fluent without any errors. Cranial nerves II through XII intact. Motor exam; moves all extremities equally. No pronator drift seen. Sensory exam; decrease light touch, pinprick up to the calves bilaterally, decreased vibration of the toes. DTRs are 1+ throughout and 1 at the both knees and ankles. Coordination; [id number] intact. Gait deferred for now. LABORATORY DATA: Blood sugars today is 227. MRI of the brain shows no acute intracranial abnormalities, and chronic ischemic changes. ASSESSMENT AND PLAN: This is a 71-year-old woman with past medical history of hypertension, hyperlipidemia, end-stage renal disease on hemodialysis came in with low grade temperature, altered mental status after dialysis, found to have elevated systolic and diastolic blood pressure with metabolic derangements and now is currently awake. CAT scan of the head showed no acute intracranial abnormality, preliminary report shows no evidence of any acute infarction. She is moving all extremities. Likely her altered mental status is secondary to transient hypertensive emergency with some possible metabolic encephalopathy. At this time; 1. Monitor electrolytes and correct accordingly. 2. Keep blood sugars between 140 to 180. 3. Keep blood pressures between 130s to 140s systolic and 70s to 80 diastolic. 4. Aspirin 81 mg and statin for stroke prevention. 5. Monitor electrolytes. Thank you for this followup. Junior Marshall MD
--- NOTE | 2017-02-21 19:44 | PN ---
DATE: SUBJECTIVE: The patient is a 71-year-old, seen and examined, doing well, sitting in chair, comfortable, not in any distress, wants to go home. No nausea or vomiting. No diarrhea. No weakness. No numbness. Ambulating to the bathroom. PHYSICAL EXAMINATION: VITAL SIGNS: The patient is afebrile, pulse 67, respirations 18 and blood pressure 164/60. LUNGS: Bilateral good airflow. No rhonchi or crackle. HEART: S1 and S2 audible. ABDOMEN: Soft and nontender. No rebound. No guarding. NEUROLOGIC: The patient is awake, alert, oriented, communicative, and ambulatory. LABORATORY EXAMINATION: WBC is 7.5, hemoglobin 9.9, hematocrit 30.8, and platelet of 155. PT 11.2 and INR 1.02. Chemistries: Blood sugar is 227, procalcitonin is 0.93. Had a MRI of the brain done that is unremarkable. Carotid Doppler bilateral 20% to 39%. Blood cultures are negative. ASSESSMENT AND PLAN: 1. Near syncope. 2. End-stage renal disease on hemodialysis. 3. Uncontrolled hypertension. 4. Insulin dependent diabetes. PLAN: We will monitor the patient overnight. Encourage ambulation. If the patient remain stable she will be discharge in a.m. Jagjit Ariza MD
[2017-02-21] MEDS ORDERED: Insulin Detemir 100 units/ml Vial (Levemir) SC SCH (22:00)
--- NOTE | 2017-02-21 23:39 | CON ---
DATE: 02/21/2017 The patient is seen earlier today in room 372, bed 1. CHIEF COMPLAINT: Weakness times several days. HISTORY OF PRESENT ILLNESS: This is a 71-year-old female with a history of hyperlipidemia, hypertension, Parkinson's, end-stage renal disease, gout, diabetes, admitted with weakness and Infectious Disease consultation requested. REVIEW OF SYSTEMS: Reveal the patient has low grade fevers, minimal chest pain. No cough. Minimal shortness of breath. No abdominal pain, diarrhea or constipation or bright red blood per rectum. No melena. PAST MEDICAL HISTORY: Significant for high cholesterol; hypertension; renal disease, on hemodialysis; diabetes mellitus; gout; and history of Parkinson's disease. PAST SURGICAL HISTORY: Significant for left arm AV shunt. ALLERGIES: THE PATIENT IS ALLERGIC TO IODINE AND ADHESIVE TAPE. MEDICATIONS AT HOME: Include insulin, Lasix, Neurontin, aspirin. PHYSICAL EXAMINATION: VITAL SIGNS: The patient is in bed with a temperature of 98, T-max is 99.7; pulse of 56 up to 87; respiratory rate of 20, it was up to 23 on admission and with a blood pressure of 140/50. HEENT: Unremarkable. NECK: Supple. Lungs: Have decreased breath sounds. HEART: Normal S1 and S2. ABDOMEN: Soft, nontender. LABORATORY EXAMINATION: Reveals a white count of 17,300, hemoglobin of 12, platelets of 201, has 85% granulocytosis, and chemistries reveal a BUN of 40 and creatinine is 6.6. Microbiology reveals the blood cultures are no growth at 24 hours. The patient had a CAT scan of the head which showed no acute findings. Chest x-ray with bilateral perihilar infiltrates, right greater than left. ASSESSMENT AND PLAN: This is a 71-year-old female with hyperlipidemia; hypertension; Parkinson disease; end-stage renal disease, on hemodialysis; gout; and diabetes, admitted with dyspnea, hypoxia, leukocytosis, white count of 17,000 and alkaline phosphatase elevation and with severe sepsis with healthcare-associated pneumonia, hospital-acquired pneumonia which is bilateral. We will treat the patient with cefepime and the patient was given a dose of vancomycin, and we will check on the procalcitonin. Blood cultures are pending. Sputum cultures are pending. We will make further recommendations upon availability of initial results. Gama Mccormack MD [facility] # [id number]
[2017-02-22 00:04] VITALS: RESP 20
[2017-02-22] MEDS: Cefepime 0.5 GM in Sodium Chloride 0.9% 100 ML IVPB SCH (05:11)
[2017-02-22 06:40] VITALS: PULSE 68; O2SAT 98
[2017-02-22] MEDS ORDERED: Multivitamin Vitamin B Complex (Nephro-Vite) Tab PO SCH (08:00)
[2017-02-22 08:11] VITALS: TEMP 98
[2017-02-22] MEDS: Insulin Lispro (HUMAlog) HIGH Coverage SC SCH ×2 (08:29→12:16)
[2017-02-22 10:45] LABS: BASO # 0.01 K/mm3 (0.0-2.0); BASO % 0.1 % (0.0-3.0); EOS # 0.3 (0.0-0.7); EOS % 3.5 % (1.5-5.0); GRAN # 5.39 (1.4-6.5); LYMPH % 13.8 % (22.0-35.0); MEAN CELL VOLUME 92.9 fl (80.0-105.0); MEAN CORPUSCULAR HGB CONC 33.3 g/dl (31.0-37.0); MEAN PLATELET VOLUME 10.3 fl (7.0-11.0); MONO # 0.6 (0.1-0.6); MONO % 7.6 % (1.0-6.0); RBC 3.23 10^6/uL (3.5-6.1); RED CELL DISTRIBUTION WIDTH 13.8 % (11.5-14.5); WHITE BLOOD COUNT 7.2 10^3/ul (4.5-11.0)
[2017-02-22 11:19] LABS: ALB/GLOB RATIO 1.2 (1.1-1.8); CALCIUM 9.6 mg/dL (8.4-10.5); MAGNESIUM 2.1 mg/dL (1.7-2.2)
[2017-02-22] MEDS: EYE OD SCH ×4 (12:19→16:01)
[2017-02-22] MEDS: CIPROFLOXACIN 0.3% OD SCH ×2 (12:19→16:01)
[2017-02-22] MEDS: DEXAMETHASONE 0.1% OD SCH ×2 (12:20→16:01)
[2017-02-22] MEDS: EYE OS SCH ×2 (12:20→16:02)
[2017-02-22] MEDS: PREDNISOLONE AC 1% OS SCH ×2 (12:20→16:02)
--- NOTE | 2017-02-22 14:07 | PN ---
DATE: 02/22/2017 SUBJECTIVE: The patient is in bed, in no acute distress, nontoxic. PHYSICAL EXAMINATION: VITAL SIGNS: Temperature is 98, blood pressure is 140/50, and respiratory rate of 16. HEENT: Unremarkable. NECK: Supple. LUNGS: Have decreased breath sounds. HEART: Normal S1 and S2. ABDOMEN: Soft. LABORATORY DATA: Reveals white count of 7.5, hemoglobin of 9, and platelets of 155. BUN of 40 and creatinine of 6.6. Procalcitonin is 0.93. Microbiology reveals the blood cultures are negative. Dr. Ariza's note is reviewed from yesterday. Review of orders reveals the patient to be on cefepime, intermittent vancomycin. Dr. Junior Marshall's progress note is also reviewed. The patient had an MRI of the brain, which is unremarkable. ASSESSMENT AND PLAN: This is a 71-year-old female seen earlier today in room 372, bed 1 with a history of hyperlipidemia, hypertension, Parkinson's, end-stage renal failure on hemodialysis, gout, and diabetes, admitted with dyspnea, hypoxia, leukocytosis, white count and alkaline phosphatase elevation and severe sepsis, healthcare-associated hospital-acquired pneumonia with elevated procalcitonin renal failure on vancomycin and cefepime day #2, may be we are going to switch to p.o. antibiotics and as far the blood cultures are negative and the patient's white count is normalized at 7.5 and she is feeling better. Review of the EKG showed QTc of 502. Upon discharge may use p.o. doxycycline due to high QTc. We would now recommend using quinolone or Zithromax. Gama Mccormack MD
--- NOTE | 2017-02-22 15:10 | CP.PCM.PN ---
Subjective - Date & Time of Evaluation Date of Evaluation: 02/22/17 Time of Evaluation: 10:00 - Subjective Subjective: DATE: 02/22/2017 CHIEF COMPLAINT: Followup for change in mental status. SUBJECTIVE: The patient is seen and examined on the bedside. She is doing much well. Following all commands. Talking without any problems. No focal weakness, paraesthesia of the extremities. MRI of the brain was shows no acute infarct by radiological read. Blood pressures are much stable today. Nephrology note reviewed and appreciated. Her blood pressure shows labile high blood pressure. Blood sugars are much better today. She is on aspirin for stroke prevention and gabapentin for neuropathic pain. PAST MEDICAL HISTORY: Hypertension, hyperlipidemia, end-stage renal disease on hemodialysis, history of gout. ALLERGIES: NO KNOWN DRUG ALLERGIES. FAMILY HISTORY: Noncontributory. SOCIAL HISTORY: No illicit drug use, smoking, or EtOH abuse. REVIEW OF SYSTEMS: A 14-point review of systems reviewed and as per the HPI. PHYSICAL EXAMINATION: GENERAL: The patient is sitting up in bed, in no acute distress. VITAL SIGNS: REVEIWED. HEENT: Head is atraumatic and normocephalic. PERRLA. Extraocular muscle intact. NECK: Supple. No JVD. No adenopathy noted. LUNGS: Clear to auscultation. No adventitious sounds. HEART: S1 and S2. Normal rate and rhythm. No murmurs, rubs or gallops. ABDOMEN: Soft, nontender. Normoactive bowel sounds present. EXTREMITIES: No clubbing. No cyanosis. Peripheral pulses 2+ bilaterally. NEUROLOGIC: The patient is alert and oriented x3. Speech is fluent without any errors. Cranial nerves II through XII intact. Motor exam; moves all extremities equally. No pronator drift seen. Sensory exam; decrease light touch, pinprick up to the calves bilaterally, decreased vibration of the toes. DTRs are 1+ throughout and 1 at the both knees and ankles. Coordination; wxveya-ca-cyzo intact. Gait deferred for now. LABORATORY DATA: MRI of the brain shows no acute intracranial abnormalities, and chronic ischemic changes. ASSESSMENT AND PLAN: This is a 71-year-old woman with past medical history of hypertension, hyperlipidemia, end-stage renal disease on hemodialysis came in with low grade temperature, altered mental status after dialysis, found to have elevated systolic and diastolic blood pressure with metabolic derangements and now is currently awake. CAT scan of the head showed no acute intracranial abnormality, preliminary report shows no evidence of any acute infarction. She is moving all extremities. Likely her altered mental status is secondary to transient hypertensive emergency with some possible metabolic encephalopathy. At this time; 1. Monitor electrolytes and correct accordingly. 2. Keep blood sugars between 140 to 180. 3. Keep blood pressures between 130s to 140s systolic and 70s to 80 diastolic. 4. Aspirin 81 mg and statin for stroke prevention. 5. Monitor electrolytes. Thank you for this followup. Junior Marshall MD Objective - Vital Signs/Intake and Output Vital Signs (last 24 hours): Temp Pulse Resp BP Pulse Ox 98.0 F 68 20 143/59 L 98 02/22/17 06:00 02/22/17 06:00 02/22/17 06:00 02/22/17 06:00 02/22/17 06:00 Intake and Output: 02/22/17 02/22/17 06:59 18:59 Intake Total 300 Balance 300 - Medications Medications: Current Medications Allopurinol (Zyloprim) 100 mg PO DAILY [facility] Last Admin: 02/21/17 15:06 Dose: 100 mg Amlodipine Besylate (Norvasc) 10 mg PO DAILY [facility] Last Admin: 02/21/17 15:07 Dose: 10 mg Aspirin (Ecotrin) 81 mg PO DAILY [facility] Last Admin: 02/21/17 15:06 Dose: 81 mg Clonidine HCl (Catapres) 0.1 mg PO BID PRN PRN Reason: Systolic Blood Pressure Doxycycline Hyclate (Doryx) 100 mg PO Q12 [facility] PRN Reason: Protocol Stop: 03/03/17 22:01 Gabapentin (Neurontin) 100 mg PO DAILY [facility] PRN Reason: Protocol Last Admin: 02/21/17 15:03 Dose: 100 mg Home Med (Home Med) 0 unit OD QID [facility] Last Admin: 02/22/17 12:20 Dose: Not Given Home Med (Home Med) 0 unit OD QID [facility] Last Admin: 02/22/17 12:19 Dose: Not Given Home Med (Home Med) 0 unit OS QID [facility] Last Admin: 02/22/17 12:20 Dose: Not Given Hydralazine HCl (Apresoline) 50 mg PO DAILY [facility] Last Admin: 02/21/17 15:04 Dose: 50 mg Cefepime HCl 0.5 gm/ Sodium (Chloride) 100 mls @ 100 mls/hr IVPB Q12H [facility] PRN Reason: Protocol Last Admin: 02/22/17 05:11 Dose: 100 mls/hr Insulin Detemir (Levemir) 18 unit SC HS [facility] Last Admin: 02/21/17 21:40 Dose: 18 unit Insulin Human Lispro (Humalog High) 0 units SC ACHS [facility] PRN Reason: Protocol Last Admin: 02/22/17 12:16 Dose: Not Given Vitamin B Complex/Vit C/Folic Acid (Nephro-Quentin) 1 tab PO 0800 [facility] Last Admin: 02/22/17 09:07 Dose: 1 tab - Labs Labs: 02/22/17 10:41 02/22/17 10:41 PT 11.2 SECONDS (9.4-12.5) 02/20/17 13:55 INR 1.02 (0.93-1.08) 02/20/17 13:55 APTT 34.0 Seconds (25.1-36.5) 02/20/17 13:55
[2017-02-22 15:48] VITALS: BP 165/62
--- NOTE | 2017-02-22 16:41 | CP.PCM.PN ---
Subjective - Date & Time of Evaluation Date of Evaluation: 02/22/17 Time of Evaluation: 16:38 - Subjective Subjective: Follow up Nephrology Consultation Note covering for Dr Chen Assessment: Stable AMS and HTN urgency: resolved pulmonary congestion with possible pneumonia Diabetic chronic Kidney Disease (E11.22) Hypertensive Chronic Kidney Disease (I12.0) End stage renal disease (N18.6) dependence on hemodialysis (Z99.2) (MWF) via AVF Anemia (D64.9), Hyperphosphatemia (E83.39), Secondary Hyperparathyroidism (E21.1 ), HTN (I12.0) Plan: Will plan for HD today as ordered with UF goal 3.5 Kgs. continue with Nephrovite 1 tab/day. last Hb 10. continue with SARIAH as outpt BP control with meds as ordered. Patient not on RAAS adalberto but may add if needed. increase hydralazine to 50 bid Glycemic control, Dialysis consistent diet Further work up/management as per primary team Dose meds/antibiotics for ESRD status. Avoid fleets enema/magnesium based laxatives. pt planned for d/c home today, stable from renal perspective. Thanks for allowing me to participate in care of your patient. Will follow patient with you. Please call if any Qs Dr Ramy Toribio Office: [phone] Subjective: Noted events overnight. Patients feels okay. Denies chest pain, palpitation, shortness of breath, leg swelling. All other negative. feels good today Physical Examination: General Appearance: Comfortable, in no acute respiratory distress, co-operative . Vitals reviewed and noted as below Head; Atraumatic, normocephalic ENT: no ulcers no thrush. Tongue is midline. Oropharynx: no rash or ulcers. EYES: Pupils are equal, round and reactive to light accommodation. Eye muscles and extraocular movement intact. Sclera is anicteric. Neck; supple no lymphadenopathy, no thyromegaly or bruit Lungs: Normal respiratory rate/effort. Breath sounds bilateral equal and clear Heart: Normal rate. s1s2 normal. No rub or gallop. Extremities: no edema. No varicose veins Neurological: Patient is alert, awake and oriented to person, place and time. No focal deficit. Strength bilateral appropriate and equal Skin: Warm and dry. Normal turgor. No rash. Palpitation: Normal elasticity for age Abdomen: Abdomen is soft. Bowel sounds +. There is no abdominal tenderness, no guarding/rigidity or organomegaly Psych: normal insight and normal affect/mood MSK: no joint tenderness or swelling. Digits and nails normal, no deformity : kidney or bladder not palpable Access: AVF Labs/imaging reviewed. Past medical history, past surgical history, family history, social history, allergy reviewed and noted as below Family Hx: no hx of CKD. Non contributory Objective - Vital Signs/Intake and Output Vital Signs (last 24 hours): Temp Pulse Resp BP Pulse Ox 98.0 F 68 20 165/62 H 98 02/22/17 06:00 02/22/17 06:00 02/22/17 06:00 02/22/17 15:44 02/22/17 06:00 Intake and Output: 02/22/17 02/22/17 06:59 18:59 Intake Total 300 Balance 300 - Medications Medications: Current Medications Allopurinol (Zyloprim) 100 mg PO DAILY [facility] Last Admin: 02/22/17 15:46 Dose: 100 mg Amlodipine Besylate (Norvasc) 10 mg PO DAILY [facility] Last Admin: 02/22/17 15:44 Dose: 10 mg Aspirin (Ecotrin) 81 mg PO DAILY [facility] Last Admin: 02/22/17 15:45 Dose: 81 mg Clonidine HCl (Catapres) 0.1 mg PO BID PRN PRN Reason: Systolic Blood Pressure Doxycycline Hyclate (Doryx) 100 mg PO Q12 [facility] PRN Reason: Protocol Stop: 03/03/17 22:01 Gabapentin (Neurontin) 100 mg PO DAILY [facility] PRN Reason: Protocol Last Admin: 02/22/17 15:46 Dose: 100 mg Home Med (Home Med) 0 unit OD QID [facility] Last Admin: 02/22/17 16:01 Dose: Not Given Home Med (Home Med) 0 unit OD QID [facility] Last Admin: 02/22/17 16:01 Dose: Not Given Home Med (Home Med) 0 unit OS QID [facility] Last Admin: 02/22/17 16:02 Dose: Not Given Hydralazine HCl (Apresoline) 50 mg PO BID [facility] Cefepime HCl 0.5 gm/ Sodium (Chloride) 100 mls @ 100 mls/hr IVPB Q12H [facility] PRN Reason: Protocol Last Admin: 02/22/17 05:11 Dose: 100 mls/hr Insulin Detemir (Levemir) 18 unit SC HS [facility] Last Admin: 02/21/17 21:40 Dose: 18 unit Insulin Human Lispro (Humalog High) 0 units SC ACHS [facility] PRN Reason: Protocol Last Admin: 02/22/17 12:16 Dose: Not Given Vitamin B Complex/Vit C/Folic Acid (Nephro-Quentin) 1 tab PO 0800 [facility] Last Admin: 02/22/17 09:07 Dose: 1 tab - Labs Labs: 02/22/17 10:41 02/22/17 10:41 PT 11.2 SECONDS (9.4-12.5) 02/20/17 13:55 INR 1.02 (0.93-1.08) 02/20/17 13:55 APTT 34.0 Seconds (25.1-36.5) 02/20/17 13:55
--- NOTE | 2017-02-23 01:16 | DS ---
HISTORY OF PRESENT ILLNESS: The patient is a 71-year-old, seen and examined, while in dialysis doing well, asked to go home, and eating and tolerating. No nausea or vomiting. No diarrhea. No fever or chills. No hemoptysis. No hematemesis. PHYSICAL EXAMINATION: VITAL SIGNS: She is afebrile, pulse 68, respirations 20, and blood pressure 143/59. LUNGS: Bilateral fair airflow. No rhonchi or crackles. HEART: S1 and S2 audible. ABDOMEN: Soft and nontender. No rebound. No guarding. NEUROLOGIC: The patient is awake, alert, oriented, and able to communicate. LABORATORY DATA: WBC 7.2, hemoglobin 10, hematocrit 30, and platelet of 161. PT 11.2 and INR 1.02. Chemistries; sodium 133, potassium 4.6, chloride 91, CO2 of 25, BUN 88, creatinine 12.1, and blood sugar 219. Blood cultures are negative. Had MRI of the brain that is negative. Carotid Doppler is unremarkable. X-ray chest showed bilateral perihilar infiltrate right greater than the left. ASSESSMENT: 1. Altered mental status. 2. Bilateral perihilar infiltrates. 3. Sepsis secondary to infiltrates. 4. Leukocytosis. 5. End-stage renal disease, on hemodialysis. 6. History of hypertension. PLAN: The patient received hemodialysis today. She is doing well. Workup for altered mental status is negative. She is being discharged home on doxycycline 100 mg twice a day. She will follow up with Dr. Guillory as an outpatient. Jagjit Ariza MD
== END 2017-02-22 16:41 | disposition home or self-care (01) | DRG 871 ==
LOC: ED 13:31 → ERH 16:31 → 3RSO 18:32
PROVIDERS: ADMIT Internal Medicine; ATTEND Internal Medicine
PROC: 5A1D70Z Performance of Urinary Filtration, Intermittent, Less than 6 Hours Per Day (ICD-10-PCS; principal; 2017-02-22)
DX: A41.9 Sepsis, unspecified organism (principal); J18.9 Pneumonia, unspecified organism; N18.6 End stage renal disease; E11.22 Type 2 diabetes mellitus with diabetic chronic kidney disease; G20 Parkinson's disease; I12.0 Hypertensive chronic kidney disease with stage 5 chronic kidney disease or end stage renal disease; N25.81 Secondary hyperparathyroidism of renal origin; I16.1 Hypertensive emergency; Z99.2 Dependence on renal dialysis; R41.0 Disorientation, unspecified; E78.5 Hyperlipidemia, unspecified; M10.9 Gout, unspecified; E87.6 Hypokalemia; D64.9 Anemia, unspecified; E78.00 Pure hypercholesterolemia, unspecified; E83.39 Other disorders of phosphorus metabolism; Y95 Nosocomial condition; R65.20 Severe sepsis without septic shock; R09.02 Hypoxemia; Z79.4 Long term (current) use of insulin; Z79.82 Long term (current) use of aspirin